=== PATIENT | female | born 1950 | race Caucasian/White ===

== ENCOUNTER → 2020-11-30 | Day surgery (SDC) | payer MEDICARE, OTHER ==
[2020-11-25 11:53] LABS: BASOPHILS % 0.6 % (0.0-1.0); EOSINOPHILS # (AUTO) 0.2 (0.0-0.4); EOSINOPHILS % 2.4 % (0.0-6.0); HEMATOCRIT 36.7 % (34.2-44.1); HEMOGLOBIN 11.9 g/dL (12.0-16.0); LYMPHOCYTES # (AUTO) 1.6 (1.0-3.2); LYMPHOCYTES % 25.9 % (18.0-39.1); MEAN CORPUSCULAR HEMOGLOBIN 30.4 pg (28-32); MEAN CORPUSCULAR HGB CONC 32.4 g/dL (31-35); MEAN CORPUSCULAR VOLUME 93.9 fL (81-99); MONOCYTES # (AUTO) 0.6 (0.2-0.8); NEUTROPHILS # (AUTO) 3.8 (2.1-6.9); NEUTROPHILS % 61.8 % (38.7-80.0); PLATELET COUNT 234 x10e3/uL (140-360); RED BLOOD COUNT 3.91 x10e6/uL (3.6-5.1); RED CELL DISTRIBUTION WIDTH 12.6 % (11.7-14.4)
[~2020-11-30] MED LIST: ALENDRONATE SOD70 MG PO; AMLODIPINE BESY10 MG PO; ATENOLOL50 MG PO; BIOTIN2500 MCG PO; BRAIN MIGHT-DH1 EACH PO; CALCIUM CITRAT500 GM PO; CENTRUM SILVER1 EAC4 PO; CIPRO500 MG PO; COREG12.5 MG PO; CYANOCOBAL1000 MCG/M IV; CYCLOBENZAPRINE10 MG PO; DEXILANT30 MG PO; DOXAZOSIN MESYLA2 MG PO; ELIQUIS2.5 MG PO; GABAPENTIN100 MG PO; HUMULIN R500 UNIT/1 INJ; HYDROCODONE-ACET5 ML PO; LIDOCAINE HCL 2% LOCAL INJ 5 ML SDV VIAL INJ ONE; LIPITOR10 MG PO; LIPITOR20 MG PO; LISINOPRIL10 MG PO; METFORMIN HCL500 MG PO; MIDAZOLAM HCL 2 MG/2 ML VIAL ONE; NEXIUM40 MG PO; NORCO 7.5-3251 EACH PO; POVIDONE IODINE 0.05% 0.05 % ML PO ONE; PROPOFOL IV EMULSION 10 MG/ML 20 ML VIAL ONE; PYRIDIUM100 MG PO; SOTALOL80 MG PO; SPIRONOLACTONE25 MG PO; SUCRALFATE1 GM PO; TRAZODONE HCL50 MG PO; TRULICITY0.75 MG/0. SC; ZESTRIL20 MG PO; [UNRECOGNIZED DRUG - OTHER] PO
[2020-11-30 14:10] VITALS: BP 169/97
== END | disposition home or self-care (01) ==
LOC: OR 11:01
PROVIDERS: ATTEND Internal Medicine Gastroenterology
DX: R19.5 Other fecal abnormalities (principal); D12.2 Benign neoplasm of ascending colon; K52.9 Noninfective gastroenteritis and colitis, unspecified; K59.00 Constipation, unspecified; K64.8 Other hemorrhoids; Z98.84 Bariatric surgery status; I10 Essential (primary) hypertension; E11.9 Type 2 diabetes mellitus without complications; D64.9 Anemia, unspecified; I25.10 Atherosclerotic heart disease of native coronary artery without angina pectoris; E78.5 Hyperlipidemia, unspecified; Z01.812 Encounter for preprocedural laboratory examination; Z79.02 Long term (current) use of antithrombotics/antiplatelets; Z68.31 Body mass index [BMI] 31.0-31.9, adult; Z95.810 Presence of automatic (implantable) cardiac defibrillator; Z85.528 Personal history of other malignant neoplasm of kidney; Z90.5 Acquired absence of kidney; Z90.710 Acquired absence of both cervix and uterus
CPT/HCPCS: 36415 ×2; 43239; 45385; 82948; 85025; 88305; 88312; J2001; J2250; J2704; 45378